=== PATIENT | male | born 1985 | race Caucasian/White ===

== ENCOUNTER 2016-12-02 19:40 | Emergency (ER) | payer OTHER ==
[2016-12-02] MEDS ORDERED: ALPRAZolam 0.25 MG TAB As Ordered ONE (20:45)
--- NOTE | 2016-12-02 21:28 | EDDOCDS ---
Physician Documentation [facility] Name: Manuel Tyler Age: 31 yrs Sex: Male : 1985 Arrival Date: 12/02/2016 Time: 19:40 Bed 30 Private MD: Damaris [facility] [place] Disposition: 12/02/16 21:17 Discharged to Home/Self Care. Impression: Anxiety disorder, unspecified. - Condition is Stable. - Discharge Instructions: Panic Attacks, Generalized Anxiety Disorder. - Medication Reconciliation, Local Pharmacy Hours form. - Follow up: Adilia Bello, Behavioral Health; When: Call to arrange an appointment; Reason: Recheck today's complaints, Continuance of care. - Problem is an acute exacerbation. - Symptoms have improved. - Notes: Return to the ED for any further concerns Historical: - Allergies: no known allergies; - Home Meds: 1. buspirone 10 mg Oral tab 1 tab 3 times per day (Last dose: 12/02/2016 15:30) 2. trazodone 50 mg Oral tab 2 tabs nightly (Last dose: 12/01/2016) 3. Nexium 20 mg Oral cpDR 1 cap once daily - PMHx: Anxiety; GERD; - PSHx: Knee, right; - Social history: Smoking status: Patient states former smoker of tobacco. No barriers to communication noted. - Family history: Not pertinent. - : The pt / caregiver states he / she is not on anticoagulants. Home medication list is obtained from the patient. - Exposure Risk Screening:: None identified. Vital Signs: 12/02 19:42 BP 143 / 96; Pulse 75; Resp 16; Temp 97.5(O); Pulse Ox 98% on R/A; Weight 77.11 kg / lr2 170 lbs (R); Height 5 ft. 7 in. (170.18 cm) (R); Pain 3/10; 21:25 BP 152 / 87; Pulse 72; Resp 16; Temp 96.8(T); Pulse Ox 96% on R/A; Pain 0/10; rw1 19:42 Body Mass Index 26.63 (77.11 kg, 170.18 cm) lr2 MDM: 20:41 ALPRAZolam Tablet 0.5 mg PO once ordered. le 20:41 Consult PFS/PSA/Supervisor Record Press: Psychiatric Concerns ordered. le 20:53 Financial registration complete. kf3 21:11 [facility] Payment Agreement was scanned into [employer] and attached to record. kf3 21:25 Consult PFS/PSA/Supervisor Record Press: Psychiatric Concerns complete. rw1 Administered Medications: 21:25 Drug: ALPRAZolam 0.5 mg [alprazolam 0.25 mg tablet (2 tabs)] Route: PO; rw1 21:25 Follow up: Response: Med's dispensed home rw1 Signatures: Luis A Miller LPN LPN rw1 Brittany Pickens, CAPONIZER CAPONIZER Cruz Dennison, Reg Reg kf3 Cindy Huerta,RN RN [facility] The chart was reviewed and I authenticate all verbal orders and agree with the evaluation and treatment provided.Attachments: 21:11 [facility] Payment Agreement kf3 MTDD
--- NOTE | 2016-12-02 21:28 | EDDOCDS ---
Nurse's Notes [facility] Name: Manuel Tyler Age: 31 yrs Sex: Male : 1985 Arrival Date: 12/02/2016 Time: 19:40 Bed 30 Private MD: Damaris [facility] [place] Diagnosis: Anxiety disorder, unspecified Presentation: 12/02 19:46 Presenting complaint: Patient states: I'm having a prolonged anxiety attack, I have [facility] anxiety I'm being treated for with buspirone and was on ativan to help prevent panic attacks but it didn't seem to be helping so haven't been using it. Since about 3pm today I've been in a constant state of more panic than normal. Denies SI, denies any history of suicide attempt or plan. Adult Sepsis Screening: The patient does not have new or worsening altered mentation. Patient's respiratory rate is less than 22. Systolic blood pressure is greater than 100. Patient has a qSOFA score of 0- Negative Sepsis Screen. Suicide/Homicide risk assessment- the patient denies having any suicidal and/or homicidal ideations and does not present with any other emotional, behavioral or mental health complaints. Status: The patient is an active duty pharmaceutical service representative. Transition of care: patient was not received from another setting of care. 19:46 Acuity: YOANA Level [address] [facility] 19:46 Method Of Arrival: Walkin/Carried/Asstd [facility] 19:55 Red Flag criteria, triaged then placed in room 30, main ED provider and U informed. [facility] Triage Assessment: 19:50 General: Appears in no apparent distress, comfortable, Behavior is appropriate for age, [facility] cooperative. Pain: Location: head Pain currently is 3 out of 10 on a pain scale. 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 Neurological: Level of Consciousness is awake, alert, Oriented to person, place, time. Respiratory: Airway is patent Respiratory effort is even, unlabored, Respiratory pattern is regular, symmetrical. Derm: Skin is pink, warm & dry. Historical: - Allergies: no known allergies; - Home Meds: 1. buspirone 10 mg Oral tab 1 tab 3 times per day (Last dose: 12/02/2016 15:30) 2. trazodone 50 mg Oral tab 2 tabs nightly (Last dose: 12/01/2016) 3. Nexium 20 mg Oral cpDR 1 cap once daily - PMHx: Anxiety; GERD; - PSHx: Knee, right; - Social history: Smoking status: Patient states former smoker of tobacco. No barriers to communication noted. - Family history: Not pertinent. - : The pt / caregiver states he / she is not on anticoagulants. Home medication list is obtained from the patient. - Exposure Risk Screening:: None identified. Screenin:25 Screening information is obtained from the patient. Fall risk: No risks identified. rw1 Assistance ADL's: requires no assistance with activities of daily living. Abuse/DV Screen: The patient / caregiver reports he/she is: not in a situation that causes fear, pain or injury. Nutritional screening: No deficits noted. Advance Directives: Currently, there is no health care proxy. home support is adequate. Assessment: 19:50 General: see triage assessment. rw1 21:13 Reassessment: Patient appears in no apparent distress at this time. awake resting on rw1 stretcher. Xanax is getting dispensed home with pt because pt is driving, provider aware and signed meds out for home use. Safety maintained, waiting for d/c papers. Vital Signs: 19:42 BP 143 / 96; Pulse 75; Resp 16; Temp 97.5(O); Pulse Ox 98% on R/A; Weight 77.11 kg (R); lr2 Height 5 ft. 7 in. (170.18 cm) (R); Pain 3/10; 21:25 BP 152 / 87; Pulse 72; Resp 16; Temp 96.8(T); Pulse Ox 96% on R/A; Pain 0/10; rw1 19:42 Body Mass Index 26.63 (77.11 kg, 170.18 cm) lr2 Vitals: 19:42 Log In Time: December 02, 2016 at 19:40. lr2 19:45 RN notified that patient meets Red Flag criteria. lr2 ED Course: 19:42 Patient visited by Monika Kaur. lr2 19:42 Patient moved to Waiting lr2 19:44 Damaris [facility] [place] is Private Physician. lr2 19:44 Patient moved to Pre RCE lr2 19:[address] [facility] 19:51 Patient moved to [address] [facility] 20:11 Britt[facility] Pickens FNP [facility] le 20:15 Patient visited by Brittany Pickens FNP. le 20:15 Patient visited by Brittany Pickens FNP. le 20:17 Luis A Miller LPN is Primary Nurse. rw1 21:02 Patient name changed from Manuel\S\\S\Bertron\S\ to Manuel\S\Stevie\S\Bertron. EDMS 21:07 Patient visited by Luis A Miller LPN. rw1 21:11 [facility] Payment Agreement was scanned into [employer] and attached to record. kf3 21:17 [facility] le 21:25 The patient / caregiver is instructed regarding the plan of care and ED course. rw1 21:25 No IV's were initiated during this patient's visit. No procedures done that require rw1 assistance. Administered Medications: 21:25 Drug: ALPRAZolam 0.5 mg [alprazolam 0.25 mg tablet (2 tabs)] Route: PO; rw1 21:25 Follow up: Response: Med's dispensed home rw1 Order Results: There are currently no results for this order. Outcome: 21:17 Discharge ordered by Provider. le 21:25 Discharge Assessment: Patient awake, alert and oriented x 3. No cognitive and/or rw1 functional deficits noted. Patient verbalized understanding of disposition instructions. patient administered narcotics - yes. Pt provided with safe discharge. The following High Risk Discharge criteria are identified: None. Discharged to home ambulatory. Condition: stable. No special radiology studies were completed. Property sent home with patient. 21:28 Patient left the ED. rw1 Signatures: [facility] Luis A Miller LPN LPN rw1 Brittany Pickens FNP FNP le Fiddler, Kris, Reg Reg kf3 Cindy Huerta RN RN [facility] Monika Kaur2 Corrections: (The following items were deleted from the chart) 19:49 19:46 Presenting complaint: Patient states: I'm having a prolonged anxiety attack, I h have anxiety I'm being treated for with buspirone and was on ativan to help prevent panic attacks but it didn't seem to be helping so haven't been using it. Since about 3pm today I've been in a constant state of more panic than normal cjh MTDD
--- NOTE | 2016-12-04 22:28 | EDDOCDS ---
Nurse's Notes [facility] Name: Manuel Tyler Age: 31 yrs Sex: Male : 1985 Arrival Date: 12/02/2016 Time: 19:40 Bed 30 Private MD: Dam[place] [facility] [place]: Anxiety disorder, unspecified Presentation: 12/02 19:46 Presenting complaint: Patient states: I'm having a prolonged anxiety attack, I have [facility] anxiety I'm being treated for with buspirone and was on ativan to help prevent panic attacks but it didn't seem to be helping so haven't been using it. Since about 3pm today I've been in a constant state of more panic than normal. Denies SI, denies any history of suicide attempt or plan. Adult Sepsis Screening: The patient does not have new or worsening altered mentation. Patient's respiratory rate is less than 22. Systolic blood pressure is greater than 100. Patient has a qSOFA score of 0- Negative Sepsis Screen. Suicide/Homicide risk assessment- the patient denies having any suicidal and/or homicidal ideations and does not present with any other emotional, behavioral or mental health complaints. Status: The patient is an active duty servicer coin machines. Transition of care: patient was not received from another setting of care. 19:46 Acuity: YOANA Level 4 [facility] 19:46 Method Of Arrival: Walkin/Carried/Asstd [facility] 19:55 Red Flag criteria, triaged then placed in room 30, main ED provider and U informed. [facility] Triage Assessment: 19:50 General: Appears in no apparent distress, comfortable, Behavior is appropriate for age, [facility] cooperative. Pain: Location: head Pain currently is 3 out of 10 on a pain scale. 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 Neurological: Level of Consciousness is awake, alert, Oriented to person, place, time. Respiratory: Airway is patent Respiratory effort is even, unlabored, Respiratory pattern is regular, symmetrical. Derm: Skin is pink, warm & dry. Historical: - Allergies: no known allergies; - Home Meds: 1. buspirone 10 mg Oral tab 1 tab 3 times per day (Last dose: 12/02/2016 15:30) 2. trazodone 50 mg Oral tab 2 tabs nightly (Last dose: 12/01/2016) 3. Nexium 20 mg Oral cpDR 1 cap once daily - PMHx: Anxiety; GERD; - PSHx: Knee, right; - Social history: Smoking status: Patient states former smoker of tobacco. No barriers to communication noted. - Family history: Not pertinent. - : The pt / caregiver states he / she is not on anticoagulants. Home medication list is obtained from the patient. - Exposure Risk Screening:: None identified. Screenin:25 Screening information is obtained from the patient. Fall risk: No risks identified. rw1 Assistance ADL's: requires no assistance with activities of daily living. Abuse/DV Screen: The patient / caregiver reports he/she is: not in a situation that causes fear, pain or injury. Nutritional screening: No deficits noted. Advance Directives: Currently, there is no health care proxy. home support is adequate. Assessment: 19:50 General: see triage assessment. rw1 21:13 Reassessment: Patient appears in no apparent distress at this time. awake resting on rw1 stretcher. Xanax is getting dispensed home with pt because pt is driving, provider aware and signed meds out for home use. Safety maintained, waiting for d/c papers. Social Work Consult: 21:16 Social Work Note: Pt. reports history of anxiety, panic attack today that was severe ms enough that he felt need to present to ER .Pt. reports much anxiety due to stressors regarding issues, reporting that he will be getting out of in January of this year and is being told he will be going soon for training in [place] for a job he will no longer be doing. He reports this has caused him a great amount of stress as he will not be able to attend his normal anxiety group sessions or his appointments during the time away. Pt. reports decrease in sleep due to increased anxiety. He denies SI/HI. Pt. is cooperative and communicative. He acknowledges need to follow-up with Hai tomorrow. Vital Signs: 19:42 BP 143 / 96; Pulse 75; Resp 16; Temp 97.5(O); Pulse Ox 98% on R/A; Weight 77.11 kg (R); lr2 Height 5 ft. 7 in. (170.18 cm) (R); Pain 3/10; 21:25 BP 152 / 87; Pulse 72; Resp 16; Temp 96.8(T); Pulse Ox 96% on R/A; Pain 0/10; rw1 19:42 Body Mass Index 26.63 (77.11 kg, 170.18 cm) lr2 Vitals: 19:42 Log In Time: December 02, 2016 at 19:40. lr2 19:45 RN notified that patient meets Red Flag criteria. lr2 ED Course: 19:42 Patient visited by Monika Kaur. lr2 19:42 Patient moved to Waiting lr2 19:44 Damaris [facility] [place] Physician. lr2 19:44 Patient moved to Pre RCE lr2 19:48 Triage Initiated cjh 19:51 Patient moved to 30 [facility] 20:11 Brittany Pickens FNP is [facility]. le 20:15 Patient visited by Brittany Pickens FNP. le 20:15 Patient visited by Brittany Pickens FNP. le 20:17 Luis A Miller LPN is Primary Nurse. rw1 21:02 Patient name changed from Manuel\S\\S\Bertron\S\ to Manuel\S\Stevie\S\Bertron. EDMS 21:07 Patient visited by Luis A Miller LPN. rw1 21:11 ON LICENSE OF [facility] Payment Agreement was scanned into [employer] and attached to record. kf3 21:17 Adilia Bello [facility] is Referral Physician. le 21:25 The patient / caregiver is instructed regarding the plan of care and ED course. rw1 21:25 No IV's were initiated during this patient's visit. No procedures done that require rw1 assistance. 12/03 20:08 T-Sheet-- Draft Copy was scanned into [employer] and attached to record. klr Administered Medications: 12/02 21:25 Drug: ALPRAZolam 0.5 mg [alprazolam 0.25 mg tablet (2 tabs)] Route: PO; rw1 21:25 Follow up: Response: Med's dispensed home rw1 Order Results: There are currently no results for this order. Outcome: 21:17 Discharge ordered by Provider. le 21:25 Discharge Assessment: Patient awake, alert and oriented x 3. No cognitive and/or rw1 functional deficits noted. Patient verbalized understanding of disposition instructions. patient administered narcotics - yes. Pt provided with safe discharge. The following High Risk Discharge criteria are identified: None. Discharged to home ambulatory. Condition: stable. No special radiology studies were completed. Property sent home with patient. 21:28 Patient left the ED. rw1 Signatures: Dispatcher [employer] EDMS Mary Patel, PSA PSA Luis A Herman,FINAL INSPECTOR TRUCK TRAILER FINAL INSPECTOR TRUCK TRAILER rw1 Brittany Pickens, IRRADIATED FUEL HANDLER IRRADIATED FUEL HANDLER Cruz Dennison, Reg Reg kf3 Cindy Huerta RN RN [facility] Nicole Sarmiento Laura lr2 Corrections: (The following items were deleted from the chart) 19:49 19:46 Presenting complaint: Patient states: I'm having a prolonged anxiety attack, I cjh have anxiety I'm being treated for with buspirone and was on ativan to help prevent panic attacks but it didn't seem to be helping so haven't been using it. Since about 3pm today I've been in a constant state of more panic than normal [facility] Chart Complete MTDD
--- NOTE | 2016-12-04 22:28 | EDDOCDS ---
Physician Documentation [facility] Name: Manuel Tyler Age: 31 yrs Sex: Male : 1985 Arrival Date: 12/02/2016 Time: 19:40 Bed 30 Private MD: Damaris [facility] [place]position: 12/02/16 21:17 Discharged to Home/Self Care. Impression: Anxiety disorder, unspecified. - Condition is Stable. - Discharge Instructions: Panic Attacks, Generalized Anxiety Disorder. - Medication Reconciliation, Local Pharmacy Hours form. - Follow up: Adilia Bello, Behavioral Health; When: Call to arrange an appointment; Reason: Recheck today's complaints, Continuance of care. - Problem is an acute exacerbation. - Symptoms have improved. - Notes: Return to the ED for any further concerns Historical: - Allergies: no known allergies; - Home Meds: 1. buspirone 10 mg Oral tab 1 tab 3 times per day (Last dose: 12/02/2016 15:30) 2. trazodone 50 mg Oral tab 2 tabs nightly (Last dose: 12/01/2016) 3. Nexium 20 mg Oral cpDR 1 cap once daily - PMHx: Anxiety; GERD; - PSHx: Knee, right; - Social history: Smoking status: Patient states former smoker of tobacco. No barriers to communication noted. - Family history: Not pertinent. - : The pt / caregiver states he / she is not on anticoagulants. Home medication list is obtained from the patient. - Exposure Risk Screening:: None identified. Vital Signs: 12/02 19:42 BP 143 / 96; Pulse 75; Resp 16; Temp 97.5(O); Pulse Ox 98% on R/A; Weight 77.11 kg / lr2 170 lbs (R); Height 5 ft. 7 in. (170.18 cm) (R); Pain 3/10; 21:25 BP 152 / 87; Pulse 72; Resp 16; Temp 96.8(T); Pulse Ox 96% on R/A; Pain 0/10; rw1 19:42 Body Mass Index 26.63 (77.11 kg, 170.18 cm) lr2 MDM: 20:41 ALPRAZolam Tablet 0.5 mg PO once ordered. le 20:41 Consult PFS/PSA/Hide Worker: Psychiatric Concerns ordered. le 20:53 Financial registration complete. kf3 21:11 [facility] Payment Agreement was scanned into [employer] and attached to record. kf3 :25 Consult PFS/PSA/Hide Worker: Psychiatric Concerns complete. rw12/03 20:08 T-Sheet-- Draft Copy was scanned into [employer] and attached to record. klr Administered Medications: 12/02 21:25 Drug: ALPRAZolam 0.5 mg [alprazolam 0.25 mg tablet (2 tabs)] Route: PO; rw1 21:25 Follow up: Response: Med's dispensed home Signatures: Luis A Miller,OPERATIONS STAFF SPECIALIST SECURITY OPERATIONS STAFF SPECIALIST SECURITY rw1 Brittany Pickens, [employer] WEBSPHERE COMMERCE DEVELOPER [employer] WEBSPHERE COMMERCE DEVELOPER Cruz Dennison, Reg Reg kf3 Cindy Huerta RN RN Nicole Garcia The chart was reviewed and I authenticate all verbal orders and agree with the evaluation and treatment provided.Attachments: 21:11 [facility] Payment Agreement 3 12/03 20:08 T-Sheet-- Draft Copy klr Chart Complete MTDD
--- NOTE | 2016-12-04 22:28 | EDDOCDS ---
Physician Documentation [facility] Name: Manuel Tyler Age: 31 yrs Sex: Male : 1985 Arrival Date: 12/02/2016 Time: 19:40 Bed 30 Private MD: Damaris [facility] [place]position: 12/02/16 21:17 Discharged to Home/Self Care. Impression: Anxiety disorder, unspecified. - Condition is Stable. - Discharge Instructions: Panic Attacks, Generalized Anxiety Disorder. - Medication Reconciliation, Local Pharmacy Hours form. - Follow up: Adilia Bello, Behavioral Health; When: Call to arrange an appointment; Reason: Recheck today's complaints, Continuance of care. - Problem is an acute exacerbation. - Symptoms have improved. - Notes: Return to the ED for any further concerns Historical: - Allergies: no known allergies; - Home Meds: 1. buspirone 10 mg Oral tab 1 tab 3 times per day (Last dose: 12/02/2016 15:30) 2. trazodone 50 mg Oral tab 2 tabs nightly (Last dose: 12/01/2016) 3. Nexium 20 mg Oral cpDR 1 cap once daily - PMHx: Anxiety; GERD; - PSHx: Knee, right; - Social history: Smoking status: Patient states former smoker of tobacco. No barriers to communication noted. - Family history: Not pertinent. - : The pt / caregiver states he / she is not on anticoagulants. Home medication list is obtained from the patient. - Exposure Risk Screening:: None identified. Vital Signs: 12/02 19:42 BP 143 / 96; Pulse 75; Resp 16; Temp 97.5(O); Pulse Ox 98% on R/A; Weight 77.11 kg / lr2 170 lbs (R); Height 5 ft. 7 in. (170.18 cm) (R); Pain 3/10; 21:25 BP 152 / 87; Pulse 72; Resp 16; Temp 96.8(T); Pulse Ox 96% on R/A; Pain 0/10; rw1 19:42 Body Mass Index 26.63 (77.11 kg, 170.18 cm) lr2 MDM: 20:41 ALPRAZolam Tablet 0.5 mg PO once ordered. le 20:41 Consult PFS/PSA/Child Care Attendant School: Psychiatric Concerns ordered. le 20:53 Financial registration complete. kf3 21:11 [facility] Payment Agreement was scanned into [employer] and attached to record. kf3 :25 Consult PFS/PSA/Child Care Attendant School: Psychiatric Concerns complete. rw12/03 20:08 T-Sheet-- Draft Copy was scanned into [employer] and attached to record. klr Administered Medications: 12/02 21:25 Drug: ALPRAZolam 0.5 mg [alprazolam 0.25 mg tablet (2 tabs)] Route: PO; rw1 21:25 Follow up: Response: Med's dispensed home Signatures: Luis A Miller,CALL CENTER ASSISTANT CALL CENTER ASSISTANT rw1 Brittany Pickens, CONTROL CENTER OPERATOR CONTROL CENTER OPERATOR Cruz Dennison, Reg Reg kf3 Cindy Huerta RN RN Nicole Garcia The chart was reviewed and I authenticate all verbal orders and agree with the evaluation and treatment provided.Attachments: 21:11 [facility] Payment Agreement 3 12/03 20:08 T-Sheet-- Draft Copy klr Chart Complete MTDD
== END 2016-12-02 21:28 | disposition home or self-care (01) ==
LOC: M ED 19:40
DX: F41.9 Anxiety disorder, unspecified (principal); K21.9 Gastro-esophageal reflux disease without esophagitis; Z87.891 Personal history of nicotine dependence; Z79.899 Other long term (current) drug therapy